=== PATIENT | male | born 1990 | race African-American/Black ===

== ENCOUNTER 2018-10-27 21:23 | Emergency (ER) | payer SELFPAY ==
[~2018-10-27] VITALS: Ht 182.9 cm; Wt 102.1 kg
--- NOTE | 2018-10-27 21:29 | NUR ---
Patient BIB EMS for possible opiate overdose. patient states he believes he injested IV methamphetmine, he "passed out". His significant other gave him narcan. After this, the patient woke up and was ambulatory. He is speaking in full sentences, [id number]. Following directions. Requires multiple ques at this time in order to complete instructed tasks. Appears to present with some delay in though process/verbal response.
[2018-10-27] MEDS ORDERED: IV NORMAL SALINE 1000 ML BAG IV ONE (21:45)
--- NOTE | 2018-10-27 21:48 | NUR ---
Xray at bedside
[2018-10-27 21:51] LABS: BASOPHILS # (AUTO) 0.1 K/uL (0.0-8.0); BASOPHILS % (AUTO) 0.6 % (0.0-2.0); EOSINOPHILS # (AUTO) 0.1 K/uL (0.0-0.7); EOSINOPHILS % (AUTO) 0.9 % (0.0-7.0); HEMATOCRIT 35.8 % (36.7-47.1); HEMOGLOBIN 12.1 g/dL (12.5-16.3); LYMPHOCYTES # (AUTO) 2.3 K/uL (20.0-40.0); LYMPHOCYTES % (AUTO) 24.8 % (20.5-51.5); MEAN CORPUSCULAR HEMOGLOBIN 29.7 uug (23.8-33.4); MEAN CORPUSCULAR HGB CONC 34 g/dL (32.5-36.3); MEAN CORPUSCULAR VOLUME 87.7 fL (73.0-96.2); MONOCYTES # (AUTO) 1.5 K/uL (2.0-10.0); MONOCYTES % (AUTO) 16.4 % (0.0-11.0); NEUTROPHILS # (AUTO) 5.3 K/uL (1.8-8.9); NEUTROPHILS % (AUTO) 57.3 % (38.5-71.5); PLATELET COUNT (AUTO) 222 K/uL (152-348); RED BLOOD CELL COUNT(AUTO) 4.09 MIL/uL (4.06-5.63); WHITE BLOOD COUNT (AUTO) 9.2 K/uL (3.6-10.2)
[2018-10-27 22:01] LABS: CREATININE 1.4 mg/dL (0.6-1.3); POTASSIUM 3.2 mmol/L (3.5-5.1)
[2018-10-27 22:06] LABS: BAND % (MANUAL) 1 % (0-10); EOSINOPHILS % (MANUAL) 1 % (0-8); LYMPHOCYTES % (MANUAL) 27 % (20-40); MONOCYTES % (MANUAL) 15 % (2-10); NEUTROPHILS % (MANUAL) 56 % (42-75)
[2018-10-27 22:07] LABS: BILIRUBIN,DIRECT 0.4 mg/dL (0.0-0.2); BILIRUBIN,TOTAL 1.4 mg/dL (0.2-1.0); TOTAL PROTEIN, SERUM 7.8 g/dL (6.4-8.2)
[2018-10-27 22:15] LABS: THYROID STIMULATING HORMONE 4.339 mIU/mL (0.358-3.740)
[2018-10-27] MEDS ORDERED: OLANZAPINE 10 MG VIAL IM ONE ×2 (22:21→22:30)
--- NOTE | 2018-10-27 23:41 | NUR ---
Respirations even and unlabored. No acute acute distress noted. VSS
--- NOTE | 2018-10-28 00:29 | NUR ---
Patient remains in bed, awaiting until patient is completely sober then ready to d/c home. patients girlfriend states she will pick the patient up
--- NOTE | 2018-10-28 01:38 | NUR ---
Patient in bed, no acute distress noted. All patient needs attended and met. Call light is within reach. Respirations even and unlabored. No cardiovascular distress noted.
--- NOTE | 2018-10-28 03:40 | NUR ---
Patient in bed, no acute distress noted. Respirations even and unlabored. No cardiovascular distress noted. Direct observation ongoing.
--- NOTE | 2018-10-28 04:41 | NUR ---
Patient remains in bed, awaiting sobriety at this time. no acute distress noted. vss
--- NOTE | 2018-10-28 06:03 | NUR ---
Patient in bed, pending sobriety t this time. VSS
--- NOTE | 2018-10-28 06:55 | NUR ---
Report given to Elijah Huggins
--- NOTE | 2018-10-28 07:16 | NUR ---
PT IS IN BED 2B. PT IS SLEEPING. NO S/S OF ACUTE DISTRESS.
--- NOTE | 2018-10-28 09:12 | NUR ---
PT WAS D/C'd TO HOME. D/C INSTRUCTIONS GIVEN TO THE PT. GAIT IS STABLE. NO S/S OF ACUTE DISTRESS AT THIS TIME. PT DENIES N/V. PT DENIES PAIN. NO N/V. N0 SOB.
[2018-10-28 09:15] VITALS: BP 145/75
== END 2018-10-28 09:18 | disposition home or self-care (01) ==
LOC: ER 21:23
DX: F19.90 Other psychoactive substance use, unspecified, uncomplicated (principal); R55 Syncope and collapse; R47.81 Slurred speech; R46.1 Bizarre personal appearance; F17.200 Nicotine dependence, unspecified, uncomplicated; Z88.8 Allergy status to other drugs, medicaments and biological substances
CPT/HCPCS: 36415; 71045; 80048; 80076; 84443; 84484; 85025; 93005; 96372; 99284; G0480; 70030-TC; A4663; J2358; J7030